=== PATIENT | male | born 1945 | race Caucasian/White ===

== ENCOUNTER 2019-02-07 15:02 | Emergency (ER) | payer OTHER, MEDICARE ==
--- NOTE | 2019-02-07 15:40 | ER Document Report ---
ED Medical Screen (RME) - General Chief Complaint: Knee Pain Stated Complaint: KNEE PAIN Time Seen by Provider: 02/07/19 15:30 Mode of Arrival: Wheelchair Information source: Patient Notes: 73-year-old male presented to ED for pain warmth redness to the right knee. He states he had a knee replacement on 01/12/2019. He states he got up this morning and everything was normal and then the second time he got up he felt a large pop in his knee. He states it is been warm painful and not been able to straighten the knee since then. He states his knee replacement was at [facility] with a Dr. Blu Segovia. He states he has a history of arthritis degenerative joint disease diabetes and a right rotator cuff repair. He states he does not smoke drink or do any drugs. He states that require to stop smoking 6 weeks before he can get his knee replacement. I have greeted and performed a rapid initial assessment of this patient. A comprehensive ED assessment and evaluation of the patient, analysis of test results and completion of medical decision making process will be conducted by an additional ED providers. - Related Data Allergies/Adverse Reactions: No Known Allergies Allergy (Unverified 02/07/19 15:30) Past Medical History - Social History Frequency of alcohol use: Rare Drug Abuse: None Endocrine Medical History: Reports: Hx Diabetes Mellitus Type 2 Renal/ Medical History: Denies: Hx Peritoneal Dialysis Musculoskeltal Medical History: Reports Hx Arthritis, Reports Hx Musculoskeletal Deformity Past Surgical History: Reports: Hx Orthopedic Surgery - rt shoulder rotator cuff and right knee replacement Physical Exam - Vital signs Vitals: Temp Pulse Resp BP Pulse Ox 98.1 F 76 16 144/86 H 98 02/07/19 15:24 02/07/19 15:24 02/07/19 15:24 02/07/19 15:24 02/07/19 15:24 Course - Vital Signs Vital signs: Temp Pulse Resp BP Pulse Ox 98.1 F 76 16 144/86 H 98 02/07/19 15:24 02/07/19 15:24 02/07/19 15:24 02/07/19 15:24 02/07/19 15:24
[2019-02-07 16:01] LABS: ABSOLUTE LYMPHOCYTES (AUTO) 1.1 10^3/uL (0.5-4.7); ABSOLUTE MONOCYTES (AUTO) 0.3 10^3/uL (0.1-1.4); ABSOLUTE NEUT (AUTO) 3.2 10^3/uL (1.7-8.2); BASOPHILS % (AUTO) 0.6 % (0-2); EOSINOPHILS % (AUTO) 1.1 % (0-6); HEMATOCRIT 40.7 % (37.9-51.0); HEMOGLOBIN 14.2 g/dL (13.5-17.0); LYMPHOCYTES % (AUTO) 24.2 % (13-45); MEAN CORPUSCULAR HEMOGLOBIN 32.5 pg (27.0-33.4); MEAN CORPUSCULAR HGB CONC 34.8 g/dL (32.0-36.0); MEAN CORPUSCULAR VOLUME 94 fl (80-97); MONOCYTES % (AUTO) 6.6 % (3-13); PLATELET COUNT 266 10^3/uL (150-450); RED BLOOD COUNT 4.35 10^6/uL (4.35-5.55); RED CELL DISTRIBUTION WIDTH 12.8 % (11.5-14.0); SEGMENTED NEUTROPHILS % (AUTO) 67.5 % (42-78); TOTAL CELLS COUNTED % (AUTO) 100 %; WHITE BLOOD COUNT 4.7 10^3/uL (4.0-10.5)
[2019-02-07 16:20] LABS: ALBUMIN 4.5 g/dL (3.5-5.0); ALKALINE PHOSPHATASE 101 U/L (38-126); ANION GAP 11 (5-19); ASPARTATE AMINO TRANSFERASE 23 U/L (17-59); BILIRUBIN,DIRECT 0.2 mg/dL (0.0-0.4); BILIRUBIN,TOTAL 0.7 mg/dL (0.2-1.3); BLOOD UREA NITROGEN 11 mg/dL (7-20); CARBON DIOXIDE 26 mmol/L (22-30); CHLORIDE 101 mmol/L (98-107); GLUCOSE 112 mg/dL (75-110); POTASSIUM 4.4 mmol/L (3.6-5.0); TOTAL PROTEIN 7.1 g/dL (6.3-8.2)
--- NOTE | 2019-02-07 16:38 | RADIOLOGY REPORT (SQ) ---
EXAM DESCRIPTION: KNEE RIGHT 2 VIEWS COMPLETED DATE/TIME: 02/07/2019 4:14 pm REASON FOR STUDY: recent knee replacement, warm red pain felt pop . Pain and swelling status post arthroplasty 1 month ago. COMPARISON: None. NUMBER OF VIEWS: Two views. TECHNIQUE: AP and lateral radiographic images acquired of the right knee. LIMITATIONS: None. FINDINGS: MINERALIZATION: Normal. BONES: The patient is status post total knee arthroplasty with patellar resurfacing. No acute fractu re or dislocation. JOINT: Moderate effusion. SOFT TISSUES: Diffuse soft tissue swelling. Vascular calcifications. IMPRESSION: Status post total right knee arthroplasty with moderate joint effusion and diffuse soft tissue swelling. No radiographic evidence for acute fracture. TECHNICAL DOCUMENTATION: JOB ID: [id number] 2010 [id number]- All Rights Reserved Reading location - IP/workstation name: [email or web address]
[2019-02-07 16:39] LABS: ERYTHROCYTE SEDIMENTATION RATE 22 mm/hr (0-20)
--- NOTE | 2019-02-07 17:54 | ER Document Report ---
ED General - General Chief Complaint: Knee Pain Stated Complaint: KNEE PAIN Time Seen by Provider: 02/07/19 15:30 Primary Care Provider: CAMILO KELLER [Primary Care Provider] - Follow up as needed Mode of Arrival: Wheelchair Notes: Patient is a 73-year-old male with history of osteoarthritis that presents to the emergency department for chief complaint of right knee pain after injury. Patient recently had a total knee arthroplasty on the right side, about 1 month ago, he is been getting physical therapy and doing quite well, this morning when he was getting out of bed, he stood up, and twisted and felt a pop in his right knee, since that is been having significant pain with walking on it and putting weight on it. He describes his pain as a constant aching sensation, describes it as a 5 out of 10 at this time, he states he had some increased swelling in the knee as well after that, but it has since gone down since he is been having his leg elevated. He states that the pain is tolerable, he did take 1 of his prescribed hydrocodone at home which did seem to help it before coming to the ER. He called the orthopedic surgeon office, they wanted him to come to the ER to have it checked out to make sure that the hardware was still in place. Past Medical History: DM, Osteoarthritis Past Surgical History: Total knee arthroplasty Social History: Denies tobacco, alcohol or drug use. Lives at home with family. Family History: Reviewed and noncontributory for presenting illness Allergies: Reviewed, see documented allergy list. REVIEW OF SYSTEMS: Other than noted above, the 12 point review of systems was reviewed with the patient and were negative, all pertinent findings are included in the HPI. PHYSICAL EXAMINATION: Vital signs reviewed, nursing noted reviewed. GENERAL: Well-appearing, well-nourished and in no acute distress. HEAD: Atraumatic, normocephalic. EYES: Eyes appear normal, extraocular movements intact, sclera anicteric, conjunctiva are normal. ENT: nares patent, oropharynx clear without exudates. Moist mucous membranes. NECK: Normal range of motion, supple without lymphadenopathy LUNGS: Breath sounds clear to auscultation bilaterally and equal. No wheezes rales or rhonchi. HEART: Regular rate and rhythm without murmurs ABDOMEN: Soft, nontender, normoactive bowel sounds. No rebound, guarding, or rigidity. No masses appreciated. EXTREMITIES: The right knee, does have an effusion, and appearance consistent with recent total knee arthroplasty, I am able to flex his knee up to 90 degrees, but he does have some discomfort with this, he does have some tenderness along the quadriceps tendon, but he is able to engage the quadriceps muscle, and extend his knee, with good strength. There is some slight warmth with palpation, but no erythema, and no tenderness with palpation around the knee itself. The incision appears to be healing well, no discharge, or bleeding. The rest of the patient's extremity exam is grossly unremarkable, ot herwise appears unremarkable. NEUROLOGICAL: No focal neurological deficits. Moves all extremities s pontaneously Motor and sensory grossly intact on exam. PSYCH: Normal mood, normal affect. SKIN: Warm, Dry, normal turgor, no rashes or lesions noted on exposed skin - Related Data Allergies/Adverse Reactions: No Known Allergies Allergy (Unverified 02/07/19 15:30) Past Medical History - General Information source: Patient - Social History Smoking Status: Never Smoker Frequency of alcohol use: Rare Drug Abuse: None Family History: Reviewed & Not Pertinent Patient has suicidal ideation: No Patient has homicidal ideation: No Endocrine Medical History: Reports: Hx Diabetes Mellitus Type 2 Renal/ Medical History: Denies: Hx Peritoneal Dialysis Musculoskeletal Medical History: Reports Hx Arthritis, Reports Hx Musculoskeletal Deformity Past Surgical History: Reports: Hx Orthopedic Surgery - rt shoulder rotator cuff and right knee replacement Physical Exam - Vital signs Vitals: Temp Pulse Resp BP Pulse Ox 98.1 F 76 16 144/86 H 98 02/07/19 15:24 02/07/19 15:24 02/07/19 15:24 02/07/19 15:24 02/07/19 15:24 Course - Re-evaluation Re-evalutation: Patient seen and examined vital signs reviewed. Laboratory data and/or imaging were ordered as appropriate for the patient's presenting symptoms and complaint, with consideration of any critical or life threatening conditions that may be associated with their obtained history and exam as noted above. Results were reviewed when available and demonstrated unremarkable blood work, ESR was ordered as well as CRP, for this mechanical injury, and ESR was only marginally elevated at 22 and a high sensitive CRP was ordered, which is unclear why, which was mildly elevated as well. The patient was re-evaluated and was stable, his x-rays did not demonstrate any movement of his hardware. There was a joint effusion and some swelling, which was noted on his exam as well, he had mild warmth, no erythema, do not suspect septic arthritis in this patient, he was able to flex his knee, and extended, he did have some pain along the quadriceps tendon. Patient reevaluated again, and his swelling had gone down despite having an elevated, he was placed in Judah wrap, and advised follow-up with his orthopedic surgeon, he states he is planning on going to [place] this week, and will call for an appointment tomorrow. He is advised to use his walker, and keep his leg elevated and ice, he already has pain medication at home to take. Evaluation was most consistent with right knee pain, after total knee a rthroplasty. Results were discussed with the patient at this point, after careful consideration I feel that that patient can be discharged from the emergency department, the patient was educated treatments and reasons to return to the emergency department based on their presumed diagnosis as noted above, they were advised to followup with a primary care physician in 2-3 days. Patient was agreeable to plan of care. *Note is created using voice recognition software and may contain spelling, synt ax or grammatical errors. Knee X-Ray 02/07/19 15:34 IMPRESSION: Status post total right knee arthroplasty with moderate joint effusion and diffuse soft tissue swelling. No radiographic evidence for acute fracture. - Vital Signs Vital signs: Temp Pulse Resp BP Pulse Ox 98.2 F 64 16 159/79 H 100 02/07/19 18:09 02/07/19 18:09 02/07/19 18:09 02/07/19 18:09 02/07/19 18:09 - Laboratory Result Diagrams: 02/07/19 15:45 02/07/19 15:45 Laboratory results interpreted by me: 02/07/19 02/07/19 02/07/19 15:45 15:45 15:45 ESR 22 H Glucose 112 H C-React Prot High Sens 4.2341 H Discharge - Discharge Clinical Impression: Right knee pain Qualifiers: Chronicity: acute Qualified Code(s): M25.561 - Pain in right knee Condition: Stable Disposition: HOME, SELF-CARE Instructions: Ice & Elevation ([facility]), Sprained Knee ([facility]) Additional Instructions: Please keep your leg elevated, use the Judah wrap for compression and apply cool or warm compresses for 20 minutes on 20 minutes off to help with swelling, keep it elevated as much as possible and follow-up with your orthopedic surgeon, call for an appointment tomorrow. Referrals: [facility] [Primary Care Provider] - Follow up as needed
[2019-02-07 18:15] VITALS: BP 159/79
== END 2019-02-07 18:15 | disposition home or self-care (01) ==
LOC: ER 15:02
DX: M25.561 Pain in right knee (principal); E11.9 Type 2 diabetes mellitus without complications; M19.90 Unspecified osteoarthritis, unspecified site; Z98.890 Other specified postprocedural states
CPT/HCPCS: 36415; 80053; 85025; 85652; 86141; 87040; 87077; 87186; 99283